=== PATIENT | male | born 1960 | race Two or more races ===

== ENCOUNTER 2018-11-19 12:04 | Emergency (ER) | payer OTHER ==
[~2018-11-19] VITALS: Ht 175.3 cm; Wt 93.4 kg
== END 2018-11-19 17:48 | disposition home or self-care (01) ==
LOC: ER 12:04
DX: R21 Rash and other nonspecific skin eruption (principal)

== ENCOUNTER 2018-12-15 17:12 | Emergency (ER) | payer OTHER ==
[~2018-12-15] VITALS: Ht 170.2 cm; Wt 86.2 kg
== END 2018-12-15 19:37 | disposition home or self-care (01) ==
LOC: ER 17:12
DX: L03.115 Cellulitis of right lower limb (principal); R21 Rash and other nonspecific skin eruption

== ENCOUNTER 2019-01-15 09:21 | Outpatient (CLI) | payer OTHER | END 2019-01-15 09:27 | disposition home or self-care (01) | LOC: SONOGRAMA 09:21 → MAMO-SONO 01-17 08:45 | DX: K57.30 Diverticulosis of large intestine without perforation or abscess without bleeding (principal); Z86.010 Personal history of colon polyps; R74.0 Nonspecific elevation of levels of transaminase and lactic acid dehydrogenase [LDH] ==